=== PATIENT | female | born 1945 | race Caucasian/White ===

== ENCOUNTER 2018-12-19 08:13 | Inpatient (IN) | payer MEDICARE, BC ==
[~2018-12-19 08:13] MED LIST: Acetaminophen IV 1GM/100ML * 1,000 MG/100 ML VIAL IVPB ONE; Buffered Lidocaine 1% SYRIN* 1 ML/SYRINGE INTRADERM ONE; Dexamethasone IV* 4 MG/ML 1 ML (4 MG) IV SLOW PU ONE; Famotidine IV* 10 MG/ML 2 ML (20 mg) IV ONE; Ketorolac INJ* 30 MG/ML 1 ML VIAL IV PRN; Lactated Ringers 1000 ML Bag* 1,000 ML IV SCH; Naloxone* 0.4 MG/ML 1 ML VIAL IV PRN; PROCHLORPERAZINE INJ 5 MG/ML 2 ML VIAL IV PRN; Scopolamine 1.5 mg* PATCH TRANSDERM ONE
[2018-12-19] MEDS ORDERED: Heparin VIAL(*) 5000 UNITS/ML VIAL (FIVE THOUSAND) ONE (08:34)
[2018-12-19] MEDS ORDERED: ceFAZolin 1 GM ADVAN(*) 1 GM ADDV.VIAL IVPB ONE (08:34)
[2018-12-19] MEDS ORDERED: ceFAZolin 2 GM in NS PREMIX(*) 2 GM/100 ML BAG IVPB ONE (08:34)
[2018-12-19] MEDS ORDERED: Famotidine IV* 10 MG/ML 2 ML (20 mg) ONE (08:34)
[2018-12-19] MEDS ORDERED: Dexamethasone IV* 4 MG/ML 1 ML (4 MG) ONE (08:34)
[2018-12-19] MEDS ORDERED: Scopolamine 1.5 mg* PATCH ONE (08:34)
[2018-12-19 09:34] LABS: ALT 18 U/L (7-52); Albumin 4.6 g/dL (3.2-5.2); Albumin/Globulin Ratio 1.7 (1-3); Alkaline Phosphatase 35 U/L (34-104); BUN/Creatinine Ratio 14.1 (8-20); Blood Urea Nitrogen 19 mg/dL (6-24); CO2 Carbon Dioxide 21 mmol/L (22-32); Calcium 9.3 mg/dL (8.6-10.3); Chloride 106 mmol/L (101-111); EGFR African American 46.5 (>60); EGFR Non-African American 38.4 (>60); Globulin 2.7 g/dL (2-4); Glucose 110 mg/dL (70-100); Sodium 139 mmol/L (135-145); Total Protein 7.3 g/dL (6.4-8.9)
[2018-12-19 09:46] LABS: Anion Gap 12 mmol/L (2-11)
[2018-12-19 10:22] LABS: Potassium Redraw 4.3 mmol/L (3.5-5.0)
[2018-12-19] MEDS ORDERED: Bupivacaine 0.25% W/EPI* 10 ML SDV ONE ×2 (11:18→11:44)
[2018-12-19] MEDS ORDERED: Methylene Blue 0.5 %* 50 MG/10 ML AMP IV ONE (11:18)
[2018-12-19] MEDS ORDERED: Propofol* 10 MG/ML 20 ML BTL ONE (11:32)
[2018-12-19] MEDS ORDERED: fentaNYL* 50 MCG/ML 2 ML VIAL (100 MCG VIAL) ONE ×3 (11:32→15:08)
[2018-12-19] MEDS ORDERED: Midazolam* 1 MG/ML 5 ML VIAL (5 MG) ONE (11:32)
[2018-12-19] MEDS ORDERED: Lidocaine 2% PF * 5 ML VIAL ONE (11:33)
[2018-12-19] MEDS ORDERED: Rocuronium* 10 MG/ML VIAL ONE (11:33)
[2018-12-19] MEDS ORDERED: KETAMINE HCL* 50 MG/ML 10 ML VIAL ONE (12:00)
[2018-12-19] MEDS ORDERED: EPHEDrine (Pressors)* 50 MG/ML VIAL ONE (12:51)
[2018-12-19] MEDS ORDERED: Ondansetron INJ* 2 MG/ML VIAL ONE ×2 (13:23→16:03)
[2018-12-19] MEDS ORDERED: Sugammadex * 200 MG/2 ML VIAL IV PUSH ONE (13:43)
--- NOTE | 2018-12-19 14:22 | OP ---
Operative Report - Blank - Operative Report Date of Operation: 12/19/18 Note: Brief Operative Note Preop Dx: morbid obesity Postop Dx: morbid obesity Procedure: laparoscopic removal of lap band; enedina en y gastric bypass Anesthesia: get Surgeon: Buffy Concrete Laborer: JUSTUS Slaughter; BERNICE De León Fluids: 1700 mL LR EBL: <50 mL Specimen: none Drains: 1 MARIA VICTORIA Findings: as above Complications: none
[2018-12-19] MEDS ORDERED: Ondansetron INJ* 2 MG/ML VIAL IV PRN (14:39)
[2018-12-19] MEDS ORDERED: HYDROcodone/ACET. 7.5/325 LIQ* 15 ML UDC PO PRN (14:39)
[2018-12-19] MEDS ORDERED: Acetaminophen ADULT LIQ* 650 MG/20.3 ML UDC PO PRN (14:39)
[2018-12-19] MEDS ORDERED: PROCHLORPERAZINE INJ 5 MG/ML 2 ML VIAL ONE (14:42)
[2018-12-19] MEDS ORDERED: HYDROmorphone INJ1* 1 MG/ML SYRINGE IV SLOW PU PRN (15:02)
[2018-12-19] MEDS: fentaNYL* 50 MCG/ML 2 ML VIAL (100 MCG VIAL) IV PRN ×2 (15:12→15:29)
[2018-12-19] MEDS: HYDROmorphone INJ1* 1 MG/ML SYRINGE IV SLOW PU PRN ×2 (16:06→21:39)
[2018-12-19] MEDS: Lactated Ringers 1000 ML Bag* 1,000 ML IV SCH ×2 (16:08→23:18)
[2018-12-19] MEDS ORDERED: Acetaminophen IV 1GM/100ML * 1,000 MG/100 ML VIAL IVPB ONE (17:08)
[2018-12-19] MEDS: DiMENhydriNATE IV* 50 MG/ML VIAL IV PUSH PRN (17:18)
--- NOTE | 2018-12-19 21:23 | OP ---
CC: Keven Deshpande MD; [facility].* DATE OF OPERATION: 12/19/18 - ROOM #352 DATE OF : 45. SURGEON: Arron Baer MD. CLINICAL TRIAL HEAD: JUSTUS Flores. ANESTHESIOLOGIST: Kinza Braden MD. ANESTHESIA: General endotracheal. PRE-OP DIAGNOSES: Clinically severe obesity, gastroesophageal reflux disease with esophagitis and status post laparoscopic adjustable gastric banding. POST-OP DIAGNOSES: Clinically severe obesity, gastroesophageal reflux disease with esophagitis and status post laparoscopic adjustable gastric banding. OPERATIVE PROCEDURE: Laparoscopic removal of laparoscopic adjustable gastric band and subcutaneous port and laparoscopic Mehrdad-en-Y gastric bypass. ESTIMATED BLOOD LOSS: Less than 50 mL. IV FLUIDS: 1.7 l of crystalloid. SPECIMENS: None. DRAINS: A 7 mm Goldy Ventura. COMPLICATIONS: None. COUNTS: Needle and sponge counts were correct. DESCRIPTION OF PROCEDURE: The patient was brought to the operating room and placed on the table supine. Sequential compression devices were placed on both lower extremities. General anesthesia was administered. Her abdomen was prepped and draped in the usual sterile fashion. She received appropriate intravenous antibiotics. A time-out was performed. Local anesthesia was infiltrated into the skin and soft tissue prior to making each incision. The entry into the abdomen was through a left upper quadrant incision accommodating a 12-mm optical trocar. After accessing the peritoneal cavity, carbon dioxide was insufflated to a pressure of 15 mmHg. Under direct visualization, 12-mm trocars were placed in the supraumbilical midline and also in the right upper quadrant. 5-mm trocars were placed in the right upper quadrant medially and in the left upper quadrant laterally. A Du liver retractor was placed percutaneously in the subxiphoid position and used to elevate the left lobe of the liver. Lap band was noted to be in its normal position. There were no adhesions to the undersurface of the liver from the band. There were some adhesions from the lesser omentum to the undersurface of the liver that were lysed sharply. The band buckle was divided and removed and the band was then unbuckled and it was removed from the retrogastric tunnel. The band tubing was cut and the tubing and band were removed from the abdominal cavity. The previous gastric plication was entirely taken down using a combination of sharp dissection and LigaSure. The capsule of the band was sharply lysed along the side of the lesser omentum and the lesser sac was entered via perigastric dissection. That was below the area of the band placement. The gastric pouch was then created with a transverse firing of Endo JESSICA stapler with a purple reinforced cartridge and subsequent vertical firings towards the angle of his using 60 mm purple reinforced cartridges. In this manner, the pouch created was approximating 15 to 30 mL of volume. Staple lines were noted to be intact and hemostasis was excellent. Omentum was retracted cephalad and the transverse colon as well. The liver retractor was identified and the jejunum was measured out approximately 40 to 50 cm. This loop was then sutured to the left lateral staple line of the gastric pouch with interrupted 2-0 silk sutures. Next, a gastrojejunal anastomosis was created using a 30-mm reno linear stapler. The common gastroenterotomy was run close with 3-0 PDS over a 34-Belarusian gastric lavage tube. The omega loop of the jejunum was divided left of the anastomosis to complete the anastomosis and then it was tested with methylene blue dye solution instilled through the orogastric tube. No leak was identified. The tube was withdrawn. Next, the Mehrdad limb was measured out to 75 cm and at this point, a functional end-to-side jejunojejunostomy was created with the Endo JESSICA stapler with the 60 mm reno cartridge. Again the common enterotomy was run closed with 3-0 PDS running it to and fro tying it to itself. Anti-obstruction suture of 3-0 silk was placed to the proximal portion of the anastomosis and the mesenteric defect was closed with interrupted 3-0 silk in a [id number] fashion. Orientation of the Mehrdad limb was confirmed. Hemostasis was assured. Du liver retractor was removed. The 7-mm Goldy Ventura drain was placed into the abdominal cavity withdrawn to the left upper quadrant 5-mm port site and the drain placed around the gastrojejunal anastomosis. It was sutured to the skin with 3-0 Prolene. The subcutaneous port was removed after incising over the palpable site and dividing the subcutaneous tissues. The port sutures were cut and the port was removed. All the wounds were then closed with 4-0 Monocryl in subcuticular fashion. Steri-Strips and dressings were applied. The patient tolerated the procedure well, was extubated and transferred to the Recovery in stable condition. [id number]/[facility] #: [id number] MTDD
[2018-12-19] MEDS: Famotidine IV* 10 MG/ML 2 ML (20 mg) IV SLOW PU SCH (21:29)
[2018-12-19] MEDS: Heparin VIAL(*) 5000 UNITS/ML VIAL (FIVE THOUSAND) SUBCUT SCH (21:29)
[2018-12-20] MEDS: HYDROmorphone INJ1* 1 MG/ML SYRINGE IV SLOW PU PRN ×2 (02:52→06:40)
[2018-12-20] MEDS: Lactated Ringers 1000 ML Bag* 1,000 ML IV SCH (05:57)
[2018-12-20] MEDS: Heparin VIAL(*) 5000 UNITS/ML VIAL (FIVE THOUSAND) SUBCUT SCH ×3 (06:38→21:34)
[2018-12-20] MEDS: Famotidine IV* 10 MG/ML 2 ML (20 mg) IV SLOW PU SCH ×2 (09:17→21:33)
[2018-12-20] MEDS: Timolol 0.5% OPTH.SOL* BTL BOTH EYES SCH (09:17)
[2018-12-20] MEDS: DiMENhydriNATE IV* 50 MG/ML VIAL IV PUSH PRN ×2 (10:15→17:27)
--- NOTE | 2018-12-20 10:23 | PN ---
Progress Note - Progress Note Date of Service: 12/20/18 SOAP: Subjective: She reports improved pain and nausea with meds. No other c/o. Discussed surgical findings. Reports voiding normal amounts; per RN not being saved. Objective: Vital Signs Temp 98.5 F 12/20/18 07:56 Pulse 71 12/20/18 07:56 Resp 18 12/20/18 10:13 BP 141/61 12/20/18 07:56 Pulse Ox 98 12/20/18 07:56 Gen: NAD; sitting up in bed. Lungs: CTA B; Heart: reg s1s2 Abd: incis c/d/i; no erythema; scant BS; soft and mildly tender Ext: warm Intake & Output 12/19/18 12/20/18 12/20/18 18:59 06:59 18:59 Intake Total 1700 980 Output Total 1000 190 Balance 1700 -20 -190 Weight 220 lb Intake: IV Fluids 1700 980 CEFAZOLIN 3GM IV 100 LR 1600 980 Oral 0 Output: MARIA VICTORIA #1 90 Urine 1000 100 Assessment: POD#1 s/p Removal LAP-BAND; conversion to LRYGB. Doing well. Plan: Adv diet. Cont MARIA VICTORIA. PO meds. Home in AM if cont to do well.
[2018-12-20] MEDS: ALPRAZolam TAB* 0.5 MG PO SCH ×2 (11:44→21:32)
[2018-12-20] MEDS: Levothyroxine TAB* 88 MCG TAB PO SCH (11:45)
[2018-12-20] MEDS: D5W 1/2 NS KCl 20 Meq 1000 ML* 1,000 ML IV SCH (13:25)
[2018-12-20] MEDS ORDERED: Metoclopramide IV* 5 MG/ML 2 ML VIAL IV PRN (20:47)
[2018-12-20] MEDS ORDERED: Ketorolac INJ* 15 MG/ML 1 ML VIAL IV PUSH ONE (21:00)
[2018-12-21] MEDS: D5W 1/2 NS KCl 20 Meq 1000 ML* 1,000 ML IV SCH ×2 (00:15→08:09)
[2018-12-21] MEDS: Levothyroxine TAB* 88 MCG TAB PO SCH (05:34)
[2018-12-21] MEDS: Heparin VIAL(*) 5000 UNITS/ML VIAL (FIVE THOUSAND) SUBCUT SCH ×2 (05:35→13:38)
[2018-12-21] MEDS ORDERED: Losartan TAB* 25 MG PO SCH (09:00)
[2018-12-21] MEDS: Famotidine IV* 10 MG/ML 2 ML (20 mg) IV SLOW PU SCH (09:12)
[2018-12-21] MEDS: Timolol 0.5% OPTH.SOL* BTL BOTH EYES SCH (09:13)
[2018-12-21] MEDS: ALPRAZolam TAB* 0.5 MG PO SCH (09:13)
[2018-12-21 11:55] VITALS: BP 145/60
--- NOTE | 2018-12-21 13:51 | DS ---
AMENDED REPORT NOW INCLUDES DESIGNATED COSIGNER CC: Dr. Keven Deshpande; [facility] * DISCHARGE SUMMARY: DATE OF ADMISSION: 12/19/18 DATE OF DISCHARGE: 12/21/18 ATTENDING SURGEON: Dr. Arron Baer.* (DICTATED BY JUSTUS MORALES) HOSPITAL COURSE: Please refer to admission history and physical and operative note for details. The patient was admitted and taken to the operating room on 12/19/18, at which time she underwent laparoscopic removal of her prior laparoscopic adjustable gastric band. She also underwent Mehrdad-en-Y gastric bypass with Dr. Baer. Surgery itself was uneventful. A Goldy-Ventura drain was placed. She has had an uneventful postoperative course with gradual increased tolerance of bariatric clear liquids and pain control. She was seen on the morning of discharge by Dr. Baer. Her MRAIA VICTORIA drain was removed and a dry sterile dressing was placed. Vital signs on the morning of discharge: Temperature 98.5, blood pressure 145/60, pulse 61, respirations 16, room air saturation 99%. Laparoscopic incision site is healing well with skin glue in place. Instructions were reviewed regarding wound care and activity. She has a followup at [facility] next week. She will resume her usual home medications with the following exceptions: Her usual naproxen 500 mg will be substituted for [id number] naproxen 2 tablets every 8 to 12 hours p.r.n. and her usual pantoprazole will be substituted for omeprazole 20 mg 1 capsule opened into liquid once daily. She is discharged to home in good condition. JUSTUS MORALES [id number]/[facility] #: [id number] [facility]
[2018-12-22] MEDS ORDERED: Scopolamine PATCH Remove* 1 NOTE MISC PATCH OFF ONE (06:00)
== END 2018-12-21 14:20 | disposition home or self-care (01) | DRG 621 ==
LOC: AA 08:13 → SSU 15:54
PROVIDERS: ADMIT Surgery; ATTEND Surgery
PROC: 0DP64CZ Removal of Extraluminal Device from Stomach, Percutaneous Endoscopic Approach (ICD-10-PCS; 2018-12-19)
PROC: 0D164ZA Bypass Stomach to Jejunum, Percutaneous Endoscopic Approach (ICD-10-PCS; principal; 2018-12-19 10:15)
DX: E66.01 Morbid (severe) obesity due to excess calories (principal); K21.0 Gastro-esophageal reflux disease with esophagitis; K22.8 Other specified diseases of esophagus; M19.90 Unspecified osteoarthritis, unspecified site; M81.0 Age-related osteoporosis without current pathological fracture; M48.061 Spinal stenosis, lumbar region without neurogenic claudication; Z96.641 Presence of right artificial hip joint; E78.2 Mixed hyperlipidemia; M93.90 Osteochondropathy, unspecified of unspecified site; F41.9 Anxiety disorder, unspecified; N18.9 Chronic kidney disease, unspecified; I12.9 Hypertensive chronic kidney disease with stage 1 through stage 4 chronic kidney disease, or unspecified chronic kidney disease; M85.89 Other specified disorders of bone density and structure, multiple sites; E03.9 Hypothyroidism, unspecified; Z82.49 Family history of ischemic heart disease and other diseases of the circulatory system; Z90.49 Acquired absence of other specified parts of digestive tract; Z87.891 Personal history of nicotine dependence; Z68.41 Body mass index [BMI] 40.0-44.9, adult
CPT/HCPCS: 36415; 43644; 43774; 80053; 87641; A9270-GY; C1776; J0690; J0780; J1100; J1170; J1240; J1644; J1885; J2250; J2405; J2704; J2765; J3010

== ENCOUNTER 2019-08-14 09:00 | Inpatient (IN) | payer MEDICARE, OTHER, BC ==
[2019-10-11] MEDS ORDERED: Lactated Ringers 1000 ml BAG 1,000 ML IV SCH (06:00)
[2019-10-11] MEDS ORDERED: ceFAZolin 2 GM PREMIX in ORs 2 GM/50 ML BAG ONE (08:12)
[2019-10-11] MEDS ORDERED: Rocuronium 50 mg VIAL 10 mg/ml 5 ml VIAL (50 mg) ONE (09:10)
[2019-10-11] MEDS ORDERED: Ondansetron 4 mg VIAL 2 MG/ML 2 ml VIAL ONE ×2 (09:10→15:07)
[2019-10-11] MEDS ORDERED: Dexamethasone IV 4 MG/ML VIAL 1 ml VIAL ONE (09:10)
[2019-10-11] MEDS ORDERED: Midazolam 2 mg/2 ml VIAL 1 mg/ml 2 ml VIAL (2 mg) ONE (09:10)
[2019-10-11] MEDS ORDERED: Succinylcholine 200 mg VIAL 20 mg/ml 10 ml VIAL (200 mg) ONE (09:10)
[2019-10-11] MEDS ORDERED: Propofol 10 MG/ML 20 ML BTL ONE ×2 (09:10→09:12)
[2019-10-11] MEDS ORDERED: fentaNYL 100 mcg/2 ml 50 MCG/ML VIAL ONE ×2 (09:10→11:47)
[2019-10-11] MEDS ORDERED: Acetaminophen IV 1 GM/100ML 100 ML ONE (09:10)
[2019-10-11] MEDS ORDERED: ROPIVACAINE 5 MG/ML 30 ML BTL (0.5%) ONE (11:13)
[2019-10-11] MEDS ORDERED: Naloxone 0.4 mg VIAL 0.4 mg/ml 1 ml VIAL IV PRN (12:04)
[2019-10-11] MEDS ORDERED: HYDROmorphone 1 MG/1 ML SYRINGE IV PRN (12:04)
[2019-10-11] MEDS ORDERED: HYDROmorphone 1 MG/1 ML SYRINGE ONE (12:20)
[2019-10-11] MEDS ORDERED: Magnesium Hydroxide LIQ 30 ML UDC PO PRN (13:58)
[2019-10-11] MEDS ORDERED: oxyCODONE/Acetamin 5/325 mg TAB PO PRN ×2 (13:58)
[2019-10-11] MEDS ORDERED: diPHENhydraMINE IV 50 MG/ML 1 ml VIAL (BENADRYL) IV PRN (13:58)
[2019-10-11] MEDS ORDERED: diPHENhydraMINE 25 mg TAB PO PRN (13:58)
[2019-10-11] MEDS ORDERED: Ondansetron 4 mg VIAL 2 MG/ML 2 ml VIAL IV PRN (13:58)
[2019-10-11] MEDS ORDERED: Ondansetron ODT 4 mg TAB 4 MG TAB PO PRN (13:58)
[2019-10-11] MEDS ORDERED: Lactulose 30 ml UDC PO PRN (13:58)
[2019-10-11] MEDS: Lactated Ringers 1000 ml BAG 1,000 ML IV SCH (15:07)
[2019-10-11] MEDS ORDERED: Prochlorperazine 5 mg/ml 2 ml VIAL (10 mg) IV PRN (17:04)
[2019-10-11] MEDS ORDERED: Prochlorperazine 5 mg/ml 2 ml VIAL (10 mg) ONE (17:10)
[2019-10-11] MEDS: ceFAZolin 1 GM in Dextrose (*) 1 GM/50 ML BAG IVPB SCH (20:28)
[2019-10-11] MEDS: Magnesium Hydroxide LIQ 30 ML UDC PO SCH (20:33)
[2019-10-12] MEDS ORDERED: Polyethylene Glycol 3350 17 GM PACKET PO PRN (00:01)
[2019-10-12] MEDS: Lactated Ringers 1000 ml BAG 1,000 ML IV SCH (00:39)
[2019-10-12] MEDS: ceFAZolin 1 GM in Dextrose (*) 1 GM/50 ML BAG IVPB SCH ×2 (04:18→11:47)
[2019-10-12 06:47] LABS: Calcium 8.3 mg/dL (8.6-10.3); Potassium 4.5 mmol/L (3.5-5.0)
[2019-10-12 06:52] LABS: BUN/Creatinine Ratio 11.5 (8-20); EGFR African American 52.1 (>60); EGFR Non-African American 43.1 (>60)
[2019-10-12 07:27] LABS: Hematocrit 31 % (35-47); Hemoglobin 10.4 g/dL (12.0-16.0); Mean Platelet Volume 8.2 fL (7.4-10.4); Platelet Count 267 10^3/uL (150-450)
[2019-10-12] MEDS ORDERED: Vitamin THERAPEUTIC TAB PO SCH (09:00)
[2019-10-12] MEDS ORDERED: Timolol 0.5% OPTH.SOL BTL BOTH EYES SCH (09:00)
[2019-10-12] MEDS: Magnesium Hydroxide LIQ 30 ML UDC PO SCH (09:42)
[2019-10-12 12:14] VITALS: BP 117/46
[2019-10-14] MEDS ORDERED: Scopolamine PATCH Remove NOTE PATCH OFF ONE (09:00)
== END 2019-10-12 14:25 | disposition home or self-care (01) ==
LOC: INTOOBSV 10-11 07:58 → AA 10-11 07:58 → SSU 10-11 15:01
PROVIDERS: ADMIT Orthopaedic Surgery Adult Reconstructive Orthopaedic Surgery; ATTEND Orthopaedic Surgery Adult Reconstructive Orthopaedic Surgery

== ENCOUNTER 2023-05-03 10:51 | Observation (INO) ==
[2023-05-03 12:00] LABS: ABS Basophils 0.1 10^3/uL (0.0-0.1); ABS Eosinophils 0.2 10^3/uL (0.0-0.5); ABS Lymphocytes 1.8 10^3/uL (1.0-4.8); ABS Monocytes 0.6 10^3/uL (0.0-0.9); ABS Neutrophils 6.3 10^3/uL (1.5-7.6); ABS Nucleated RBC 0.01 10^3/ul; Eosinophil % 1.8 %; Hematocrit 40.7 % (35-45); Hemoglobin 13.6 g/dL (11.5-14.3); Lymphocyte % 20.2 %; Mean Corpuscular Hemoglobin 29.3 pg (27-33); Mean Corpuscular Hgb Conc 33.3 g/dL (31-36); Mean Corpuscular Volume 87.9 fL (80-97); Mean Platelet Volume 7.6 fL (7.5-11.2); Nucleated Red Blood Cells % 0.1 %/100WBC (0.0-0.8); Platelet Count 342 10^3/uL (150-450); Red Blood Count 4.63 10^6/uL (3.63-4.92); Red Cell Distribution Width 14.4 % (12-17); White Blood Count 8.9 10^3/uL (3.8-11.8)
[2023-05-03 12:18] LABS: Albumin 4.6 g/dL (3.2-5.2); Albumin/Globulin Ratio 1.8 (1-3); Calcium 8.7 mg/dL (8.6-10.3); Creatinine, Serum 1.34 mg/dL (0.51-0.95); Globulin 2.6 g/dL (2-4); Potassium 4.8 mmol/L (3.5-5.0); Total Bilirubin 0.4 mg/dL (0.2-1.0); Total Protein 7.2 g/dL (6.4-8.9); eGFR CKD-EPI 40.8 (>60)
[2023-05-03] MEDS ORDERED: Iodixanol (CONTRAST) 320 MG/ML 100 ML SDV IV ONE (13:33)
[2023-05-03] MEDS ORDERED: Lactated Ringers 1000 ml BAG 1,000 ML IV ONE (15:51)
[2023-05-03 17:04] LABS: Urine Appearance Clear; Urine Bilirubin Negative (Negative); Urine Blood Negative (Negative); Urine Color Yellow; Urine Glucose Negative (Negative); Urine Ketones Trace (Negative); Urine Nitrite Negative (Negative); Urine Protein Negative (Negative); Urine Specific Gravity 1.056 (1.002-1.030); Urine Urobilinogen Negative (Negative)
[2023-05-03 17:15] LABS: Urine Bacteria Absent (Absent); Urine Red Blood Cell 1+(3-5/hpf) (Absent); Urine Squamous Epithelial Cell Present (Absent); Urine White Blood Cell Trace(0-5/hpf) (Absent)
[2023-05-04 07:10] LABS: Calcium 8.3 mg/dL (8.6-10.3); Creatinine, Serum 1.04 mg/dL (0.51-0.95); HDL Cholesterol 57.3 mg/dL; Potassium 4.6 mmol/L (3.5-5.0); eGFR CKD-EPI 55.4 (>60)
[2023-05-04 07:25] LABS: TSH Ultra Thyroid Stim Horm 0.29 mcIU/mL (0.34-5.60)
[2023-05-04] MEDS ORDERED: Lactated Ringers 1000 ml BAG 1,000 ML IV SCH (09:00)
[2023-05-04 15:14] VITALS: BP 159/88
== END 2023-05-04 15:45 | disposition left against medical advice (07) ==
LOC: EDHOLD 10:51 → ED 10:51 → SUATTDRO 22:23 → MEDTELE 05-04 00:05
PROVIDERS: ADMIT Internal Medicine; ATTEND Internal Medicine

== ENCOUNTER 2023-06-04 17:17 | Inpatient (IN) ==
[2023-06-04 19:01] LABS: Urine Appearance Cloudy; Urine Bilirubin Negative (Negative); Urine Blood Negative (Negative); Urine Color Amber; Urine Glucose Negative (Negative); Urine Ketones Trace (Negative); Urine Nitrite Negative (Negative); Urine Protein 1+(30 mg/dL) (Negative); Urine Specific Gravity 1.023 (1.002-1.030); Urine Urobilinogen Negative (Negative)
[2023-06-04 19:08] LABS: Urine Benzodiazepine Screen Presumptive Positive (None Detect); Urine Cannabinoids Screen None Detected (None Detect); Urine Opiates Screen None Detected (None Detect)
[2023-06-04 19:37] LABS: Urine Bacteria Absent (Absent); Urine Red Blood Cell Trace(0-2/hpf) (Absent); Urine White Blood Cell Trace(0-5/hpf) (Absent)
[2023-06-04 20:10] LABS: Venous Bicarbonate HCO3 20.7 mmol/L (24-28)
[2023-06-04 20:31] LABS: ABS Lymphocytes 0.9 10^3/uL (1.0-4.8); ABS Monocytes 0.7 10^3/uL (0.0-0.9); ABS Neutrophils 13.6 10^3/uL (1.5-7.6); ABS Nucleated RBC 0.01 10^3/ul; Eosinophil % 0.2 %; Hematocrit 41.7 % (35-45); Hemoglobin 13.4 g/dL (11.5-14.3); Lymphocyte % 6.2 %; Mean Corpuscular Hemoglobin 28.2 pg (27-33); Mean Corpuscular Hgb Conc 32.1 g/dL (31-36); Mean Corpuscular Volume 87.8 fL (80-97); Nucleated Red Blood Cells % 0.1 %/100WBC (0.0-0.8); Red Blood Count 4.76 10^6/uL (3.63-4.92); Red Cell Distribution Width 14.7 % (12-17); White Blood Count 15.3 10^3/uL (3.8-11.8)
[2023-06-04] MEDS: NS 0.9% 1000 ml BAG 1,000 ML IV SCH (21:24)
[2023-06-04 21:41] LABS: ALT 18 U/L (7-52); AST 37 U/L (13-39); Albumin 4.1 g/dL (3.2-5.2); Albumin/Globulin Ratio 1.6 (1-3); Alkaline Phosphatase 45 U/L (35-149); Anion Gap 11 mmol/L (2-16); Blood Urea Nitrogen 26 mg/dL (6-24); CO2 Carbon Dioxide 21 mmol/L (22-32); Calcium 8.4 mg/dL (8.6-10.3); Chloride 108 mmol/L (101-111); Creatinine, Serum 1.26 mg/dL (0.51-0.95); Globulin 2.5 g/dL (2-4); Glucose 120 mg/dL (70-100); Potassium 4.3 mmol/L (3.5-5.0); Sodium 140 mmol/L (135-145); Total Bilirubin 0.8 mg/dL (0.2-1.0); Total Protein 6.6 g/dL (6.4-8.9)
[2023-06-04 21:48] LABS: High Sens Troponin Baseline 24 pg/mL (<15)
[2023-06-04 21:51] LABS: Mean Platelet Volume 8.1 fL (7.5-11.2); Platelet Count 283 10^3/uL (150-450)
[2023-06-04 22:34] LABS: Alcohol, S < 13 mg/dL (<13)
[2023-06-04 22:53] LABS: High Sensitivity Troponin 1 Hr 18 pg/mL (<15)
[2023-06-04] MEDS: Famotidine IV 10 MG/ML 2 ml VIAL (20 mg) IV SLOW PU ONE (23:20)
[2023-06-05] MEDS: Iodixanol (CONTRAST) 320 MG/ML 100 ML SDV IV ONE (00:06)
[2023-06-05 00:49] LABS: Rapid COVID-19 Molecular Undetected (Undetected)
[2023-06-05 00:57] LABS: Influenza A Molecular Negative (Negative); Influenza B Molecular Negative (Negative)
[2023-06-05] MEDS: Enoxaparin 40 MG/0.4 ML SYR SUBCUT SCH (02:51)
[2023-06-05 08:13] LABS: ABS Eosinophils 0.1 10^3/uL (0.0-0.5); ABS Lymphocytes 0.5 10^3/uL (1.0-4.8); ABS Monocytes 0.7 10^3/uL (0.0-0.9); ABS Neutrophils 10.1 10^3/uL (1.5-7.6); Eosinophil % 0.8 %; Hemoglobin 11.8 g/dL (11.5-14.3); Mean Corpuscular Hemoglobin 28.8 pg (27-33); Mean Corpuscular Hgb Conc 32.9 g/dL (31-36); Mean Corpuscular Volume 87.5 fL (80-97); Mean Platelet Volume 7.7 fL (7.5-11.2); Platelet Count 296 10^3/uL (150-450); Red Blood Count 4.12 10^6/uL (3.63-4.92); White Blood Count 11.4 10^3/uL (3.8-11.8)
[2023-06-05 08:28] LABS: Calcium 7.8 mg/dL (8.6-10.3); Creatinine, Serum 1.26 mg/dL (0.51-0.95); HDL Cholesterol 57.1 mg/dL; Magnesium 2.5 mg/dL (1.9-2.7); Potassium 4.2 mmol/L (3.5-5.0)
[2023-06-05] MEDS: Cholecalciferol (VIT D3) 1,000 unit TAB PO SCH (09:01)
[2023-06-05] MEDS: Multivitamins/Minerals TAB PO SCH (09:01)
[2023-06-05] MEDS: Timolol 0.5% OPTH.SOL BTL BOTH EYES SCH (09:03)
[2023-06-05 10:35] LABS: C Reactive Protein 151.12 mg/L (<8.01)
[2023-06-05] MEDS ORDERED: Zosyn per Pharmacy NOTE FOLLOW UP SCH (11:00)
[2023-06-05] MEDS: Piperacillin/Tazobac 3.375 BAG 3.375 GM/100 ML BAG IV ONE (11:59)
[2023-06-05] MEDS: ZOSYN 3.375 GM Q8H per EXTENDED INFUSION IV SCH (16:23)
[2023-06-05 16:28] LABS: Hematocrit 35.3 % (35-45); Hemoglobin 11.7 g/dL (11.5-14.3); Mean Corpuscular Hemoglobin 28.9 pg (27-33); Mean Corpuscular Hgb Conc 33.1 g/dL (31-36); Mean Corpuscular Volume 87.3 fL (80-97); Mean Platelet Volume 7.4 fL (7.5-11.2); Platelet Count 292 10^3/uL (150-450); Red Blood Count 4.05 10^6/uL (3.63-4.92); Red Cell Distribution Width 14.8 % (12-17); White Blood Count 8.6 10^3/uL (3.8-11.8)
[2023-06-05 16:46] LABS: Albumin 3.6 g/dL (3.2-5.2); Albumin/Globulin Ratio 1.6 (1-3); Calcium 7.4 mg/dL (8.6-10.3); Creatinine, Serum 1.35 mg/dL (0.51-0.95); Globulin 2.3 g/dL (2-4); Potassium 3.8 mmol/L (3.5-5.0); Total Bilirubin 0.8 mg/dL (0.2-1.0); Total Protein 5.9 g/dL (6.4-8.9); eGFR CKD-EPI 40.5 (>60)
[2023-06-05] MEDS: Latanoprost 0.005% 2.5 ml BTL BOTH EYES SCH (21:06)
[2023-06-06] MEDS: Lactated Ringers 1000 ml BAG 1,000 ML IV SCH ×2 (08:14→11:11)
[2023-06-06 09:05] LABS: Hematocrit 29.6 % (35-45); Hemoglobin 9.9 g/dL (11.5-14.3); Mean Corpuscular Hemoglobin 29.1 pg (27-33); Mean Corpuscular Hgb Conc 33.6 g/dL (31-36); Mean Corpuscular Volume 86.7 fL (80-97); Mean Platelet Volume 7.9 fL (7.5-11.2); Platelet Count 238 10^3/uL (150-450); Red Blood Count 3.42 10^6/uL (3.63-4.92); Red Cell Distribution Width 14.9 % (12-17); White Blood Count 4.9 10^3/uL (3.8-11.8)
[2023-06-06 09:51] LABS: Albumin 3.1 g/dL (3.2-5.2); Albumin/Globulin Ratio 1.6 (1-3); Calcium 6.6 mg/dL (8.6-10.3); Creatinine, Serum 1.15 mg/dL (0.51-0.95); Potassium 3.7 mmol/L (3.5-5.0); Total Bilirubin 0.6 mg/dL (0.2-1.0); Total Protein 5.1 g/dL (6.4-8.9); eGFR CKD-EPI 49.1 (>60)
[2023-06-06] MEDS: ceFAZolin 2 GM in NS PREMIX 2 GM/100 ML BAG IVPB SCH (11:11)
[2023-06-06] MEDS: ceFAZolin 2 GM PREMIX 2 GM/50 ML BAG IV SCH (20:12)
[2023-06-07] MEDS: Polyethylene Glycol 3350 17 GM PACKET PO PRN (05:47)
[2023-06-07 09:59] LABS: ABS Eosinophils 0.4 10^3/uL (0.0-0.5); ABS Lymphocytes 0.7 10^3/uL (1.0-4.8); ABS Monocytes 0.3 10^3/uL (0.0-0.9); ABS Neutrophils 2.8 10^3/uL (1.5-7.6); Eosinophil % 9.2 %; Hematocrit 31.5 % (35-45); Hemoglobin 10.5 g/dL (11.5-14.3); Lymphocyte % 17.6 %; Mean Corpuscular Hemoglobin 29.1 pg (27-33); Mean Corpuscular Hgb Conc 33.3 g/dL (31-36); Mean Corpuscular Volume 87.4 fL (80-97); Mean Platelet Volume 7.7 fL (7.5-11.2); Nucleated Red Blood Cells % 0.1 %/100WBC (0.0-0.8); Platelet Count 266 10^3/uL (150-450); Red Blood Count 3.61 10^6/uL (3.63-4.92); Red Cell Distribution Width 14.8 % (12-17); White Blood Count 4.2 10^3/uL (3.8-11.8)
[2023-06-07 10:19] LABS: Anion Gap 9 mmol/L (2-16); Blood Urea Nitrogen 10 mg/dL (6-24); C Reactive Protein 34.16 mg/L (<8.01); CO2 Carbon Dioxide 19 mmol/L (22-32); Chloride 115 mmol/L (101-111); Creatinine, Serum 0.96 mg/dL (0.51-0.95); Glucose 65 mg/dL (70-100); Sodium 143 mmol/L (135-145); eGFR CKD-EPI 60.9 (>60)
[2023-06-07 12:18] LABS: Potassium Redraw 4.1 mmol/L (3.5-5.0)
[2023-06-07 18:05] LABS: T4, Total 9.49 mcg/dL (6.09-12.23)
[2023-06-07] MEDS: Calcium Carb (TUMS) 500 mg CHEW TAB PO ONE (21:02)
[2023-06-07] MEDS: Senna TAB 8.6 mg TAB PO PRN (21:03)
[2023-06-08] MEDS: Ondansetron 4 mg VIAL 2 MG/ML 2 ml VIAL IV ONE (10:13)
[2023-06-08 13:41] VITALS: BP 140/88
== END 2023-06-08 15:26 | disposition home or self-care (01) | DRG 564 ==
LOC: EDHOLD 17:17 → ED 17:17 → SUATTDRO 06-05 02:09 → MEDTELE 06-05 05:10
PROVIDERS: ADMIT Internal Medicine; ATTEND Hospitalist

== ENCOUNTER 2023-08-16 10:50 | Observation (INO) ==
[2023-08-16 11:45] LABS: ABS Basophils 0.1 10^3/uL (0.0-0.1); ABS Lymphocytes 0.5 10^3/uL (1.0-4.8); ABS Monocytes 0.7 10^3/uL (0.0-0.9); ABS Neutrophils 10.2 10^3/uL (1.5-7.6); Eosinophil % 0.2 %; Hematocrit 38.3 % (35-45); Hemoglobin 12.6 g/dL (11.5-14.3); Mean Corpuscular Hemoglobin 27.9 pg (27-33); Mean Corpuscular Hgb Conc 32.9 g/dL (31-36); Mean Corpuscular Volume 84.8 fL (80-97); Mean Platelet Volume 7.8 fL (7.5-11.2); Platelet Count 347 10^3/uL (150-450); Red Blood Count 4.52 10^6/uL (3.63-4.92); White Blood Count 11.4 10^3/uL (3.8-11.8)
[2023-08-16 12:13] LABS: High Sens Troponin Baseline 16 pg/mL (<15)
[2023-08-16 12:51] LABS: ALT 15 U/L (7-52); Albumin 4.6 g/dL (3.2-5.2); Albumin/Globulin Ratio 1.8 (1-3); Alcohol, S < 13 mg/dL (<13); Alkaline Phosphatase 39 U/L (35-149); Anion Gap 10 mmol/L (2-16); Blood Urea Nitrogen 17 mg/dL (6-24); CO2 Carbon Dioxide 23 mmol/L (22-32); Calcium 9.1 mg/dL (8.6-10.3); Chloride 106 mmol/L (101-111); Creatinine, Serum 1.41 mg/dL (0.51-0.95); Globulin 2.5 g/dL (2-4); Glucose 112 mg/dL (70-100); Sodium 139 mmol/L (135-145); TSH Ultra Thyroid Stim Horm 0.42 mcIU/mL (0.34-5.60); Total Bilirubin 0.7 mg/dL (0.2-1.0); Total Protein 7.1 g/dL (6.4-8.9); eGFR CKD-EPI 38.2 (>60)
[2023-08-16 13:23] LABS: Creatine Kinase 401 U/L (10-223)
[2023-08-16 13:46] LABS: Urine Appearance Clear; Urine Bilirubin Negative (Negative); Urine Blood Negative (Negative); Urine Color Yellow; Urine Glucose Negative (Negative); Urine Ketones Trace (Negative); Urine Nitrite Negative (Negative); Urine Protein Trace (Negative); Urine Urobilinogen Negative (Negative)
[2023-08-16 13:56] LABS: Urine Amorphous Crystals Present /HPF (Absent); Urine Bacteria Absent /HPF (Absent); Urine Red Blood Cell Trace(0-2/hpf) /HPF (0-Trace); Urine Squamous Epithelial Cell Present /HPF (Absent); Urine White Blood Cell Trace(0-5/hpf) /HPF (0-Trace)
[2023-08-16] MEDS ORDERED: Ondansetron ODT 4 mg TAB 4 MG TAB PO PRN (16:44)
[2023-08-16] MEDS: Lactated Ringers 1000 ml BAG 1,000 ML IV ONE (18:06)
[2023-08-16] MEDS: Latanoprost 0.005% 2.5 ml BTL BOTH EYES SCH (21:04)
[2023-08-16] MEDS: Timolol 0.5% OPTH.SOL BTL BOTH EYES SCH (21:05)
[2023-08-17] MEDS: Enoxaparin 30 MG/0.3 ML SYR SUBCUT SCH (06:40)
[2023-08-18 06:17] LABS: Calcium 8.2 mg/dL (8.6-10.3); Creatinine, Serum 1.2 mg/dL (0.51-0.95); Potassium 3.8 mmol/L (3.5-5.0); eGFR CKD-EPI 46.3 (>60)
[2023-08-18 13:55] VITALS: BP 100/50
== END 2023-08-18 15:25 | disposition home or self-care (01) ==
LOC: EDHOLD 10:50 → ED 10:50 → MEDTELE 16:48
PROVIDERS: ADMIT Internal Medicine; ATTEND Internal Medicine